=== PATIENT | female | born 1985 | race Caucasian/White ===

== ENCOUNTER → 2017-12-18 | Outpatient (CLI) | payer OTHER ==
--- NOTE | 2017-12-18 13:01 | US ---
EXAMINATION TYPE: Transabdominal DATE OF EXAM: 05/26/17 COMPARISON: NONE CLINICAL HISTORY: Z36 Confirm Dates. EXAM PERFORMED: Transabdominal (TA) EXAM MEASUREMENTS: GESTATIONAL AGE / DATING Physician Established: Not yet established Dates by LMP: (12 weeks/6 days) EDC: 06/26/2018 Dates by First Scan: No previous. This is first scan Dates by Current Scan for: (8 weeks/3 days) EDC: 07/27/2018 MATERNAL ANATOMY Uterus: 13.2 x 6.0 x 6.1cm Right Ovary: 3.0 x 3.1 x 1.8cm Left Ovary: 3.8 x 3.2 x 2.8cm Post CDS / Adnexa: wnl Presence of free fluid: no Presence of corpus luteal cyst: in left ovary = 1.7 x 1.4 x 1.3cm Presence of subchorionic bleed: no GESTATION / SURVEY CRL: 1.9cm (8 weeks/3 days) Yolk Sac (normal less than 6mm): 4.3mm Heart Rate: 174 bpm Rhythm: Normal IUP: single Date of LMP: 09/19/2017 Beta HcG (if available): NA IMPRESSION: Single, live IUP,8 weeks/3 days, EDC: 07/27/2018,HR 174bpm.
[2017-12-18 13:13] LABS: HCT 39.1 % (34.0-46.0); HGB 13.5 gm/dL (11.4-16.0); MCH 31.2 pg (25.0-35.0); MCHC 34.5 g/dL (31.0-37.0); MCV 90.3 fL (80.0-100.0); Mean Platelet Volume 6.9; Platelet Count 305 k/uL (150-450); RBC 4.33 m/uL (3.80-5.40); RDW 12.2 % (11.5-15.5); WBC 10.1 k/uL (3.8-10.6)
[2017-12-18 13:29] LABS: Glucose 88 mg/dL (74-99)
[2017-12-18 20:50] LABS: HIV 1 AB Non-Reactive (Non-Reactive); HIV AB P24 Non-Reactive (Non-Reactive); HIV P24 AG Non-Reactive (Non-Reactive)
== END | disposition home or self-care (01) ==
LOC: RADUSWWP 12:14
PROVIDERS: ATTEND Obstetrics & Gynecology
DX: Z36.89 Encounter for other specified antenatal screening (principal); Z34.81 Encounter for supervision of other normal pregnancy, first trimester; Z3A.00 Weeks of gestation of pregnancy not specified
CPT/HCPCS: 36415; 76801; 82565; 82947; 85027; 86762; 86780; 86850; 86900; 86901; 87340; 87390

== ENCOUNTER → 2018-03-02 | Outpatient (CLI) | payer OTHER ==
--- NOTE | 2018-03-02 14:50 | US ---
EXAMINATION TYPE: US OB anatomy transabd DATE OF EXAM: 03/02/2018 COMPARISON: US 2018 HISTORY: O36.62X0 Large For Dates LGA, 3, para 2 TECHNIQUE: Transabdominal (TA) EXAM MEASUREMENTS: GESTATIONAL AGE / DATING Physician Established: (19 weeks/0 days) EDC: 07/27/2018 Dates by LMP: Unknown Dates by First Scan: (19 weeks/0 days) EDC: 07/27/2018 Dates by Current Scan for: (18 weeks/6 days) EDC: 07/28/2018 SURVEY IUP: Single PLACENTA: Anterior PREVIA: with partially distended bladder placenta appears low lying, with fully distended bladder no previa seen KEE: 10.8 cm Normal CERVICAL LENGTH (transabdominal: norm > 3.0cm): 3.8 cm BIOMETRY PRESENTATION: Breech LIE: Transverse lie with head maternal right BPD: 4.2 cm 18 weeks / 5 days HC: 15.8 cm 18 weeks / 5 days AC: 14.0 cm 19 weeks / 3 days FL: 2.9 cm 19 weeks / 0 days ESTIMATED WEIGHT IN GRAMS: 277.3 grams ESTIMATED WEIGHT IN LBS/OZ: 0 lbs. 10 oz. WEIGHT PERCENTAGE BASED ON ESTABLISHED DATE: 55 % HC/AC: 1.13 Normal FL/AC: 20.99 HEART RATE: 157 bpm RHYTHM: Normal ANATOMY SEEN (within normal limits): Lateral Vent (< 1 cm) 0.7 cm Cisterna Magna (< 1.1 cm) 0.5 cm Nuchal Fold (< 0.6 cm) 0.2 cm Cerebellum (varies with age) 1.9 cm Choroid Plexus (bilateral) Midline Falx Cavus Septi Pellucidi Four Chamber Heart Outflow tracts: LVOT/RVOT Stomach Situs Nose / Lips Kidneys (bilateral) Bladder Three Vessel Cord Longitudinal Spine Transverse Spine Arms (bilateral) Legs (bilateral) ANATOMY SUBOPTIMALLY VISUALIZED (due to position): Cord Insert Diaphragm Nursing Professor notes: Viable single IUP measuring 18 weeks 6 days with a heart rate of 157bpm and an est imated delivery date of 07/28/2018. IMPRESSION: 1. SINGLE LIVE INTRAUTERINE WITH ESTIMATED GESTATIONAL AGE of 19 WEEKS 0 DAYS BY LMP. CURRE NT BIOMETRY IS CONCORDANT (18 WEEKS 6 DAYS). 2. THIS PLACES THE GESTATION AT THE 55TH PERCENTILE FOR WEIGHT. 3. A COUPLE OF THE STRUCTURES ON THE SURVEY WERE SUBOPTIMALLY VISUALIZED INCLUDING THE CORD INS ERTION AND DIAPHRAGM. THE REMAINING STRUCTURES APPEAR NORMAL. THE PATIENT CAN BE BROUGHT BACK FOR A R ESCAN IN ONE TO 2 WEEKS IF DESIRED.
== END | disposition home or self-care (01) ==
LOC: RADUSWWP 09:36
PROVIDERS: ATTEND Obstetrics & Gynecology
DX: O36.5920 Maternal care for other known or suspected poor fetal growth, second trimester, not applicable or unspecified (principal); Z3A.19 19 weeks gestation of pregnancy
CPT/HCPCS: 76811

== ENCOUNTER → 2018-03-18 | Outpatient (CLI) | payer OTHER ==
--- NOTE | 2018-03-18 16:06 | US ---
EXAMINATION TYPE: US OB Call Back DATE OF EXAM: 03/18/2018 COMPARISON: 03/12/2018 CLINICAL HISTORY: Z36 REMAINDER OF ANATOMY. GESTATIONAL AGE / DATING Dates by Initial Survey Scan: (21 weeks/2 days) EDC: 07/27/2018 HEART RATE: 157 bpm RHYTHM: Normal ANATOMY SEEN (second anatomic survey look): Diaphragm : Not discretely identified. No abdominal contents extending upwards however is evident. Cord Insert : Normal OB callback for cord insert and diaphragm Anatomy wnl IMPRESSION: Follow-up examination for anatomy. No suspicious findings on this limited portion of this exam
== END ==
LOC: RADUSWWP 10:58
PROVIDERS: ATTEND Obstetrics & Gynecology
DX: Z53.9 Procedure and treatment not carried out, unspecified reason (principal)

== ENCOUNTER → 2018-04-08 | Outpatient (CLI) | payer OTHER ==
[2018-04-08 10:45] LABS: HCT 37.9 % (34.0-46.0); HGB 12.5 gm/dL (11.4-16.0); MCH 30.7 pg (25.0-35.0); MCHC 32.9 g/dL (31.0-37.0); MCV 93.3 fL (80.0-100.0); Mean Platelet Volume 6.7; Platelet Count 276 k/uL (150-450); RBC 4.06 m/uL (3.80-5.40); RDW 13.3 % (11.5-15.5); WBC 11.4 k/uL (3.8-10.6)
== END | disposition home or self-care (01) ==
LOC: LABWHC1 09:06
PROVIDERS: ATTEND Obstetrics & Gynecology
DX: Z34.82 Encounter for supervision of other normal pregnancy, second trimester (principal)
CPT/HCPCS: 36415; 82950; 85027

== ENCOUNTER → 2018-04-13 | Outpatient (CLI) | payer OTHER ==
[2018-04-13 13:06] LABS: Glucose 3 Hour, Gest 74 mg/dL
== END ==
LOC: LABWHC1 08:07
PROVIDERS: ATTEND Obstetrics & Gynecology
DX: O99.810 Abnormal glucose complicating pregnancy (principal); Z3A.00 Weeks of gestation of pregnancy not specified
CPT/HCPCS: 36415; 82951; 82952

== ENCOUNTER 2018-04-14 20:05 | Outpatient (CLI) | payer OTHER ==
--- NOTE | 2018-04-15 09:32 | P.MSEPDOC ---
Presenting Problems - Arrival Data Date of Arrival on Unit: 04/14/18 Time of Arrival on Unit: 20:05 Mode of Transport: Wheelchair Disposition - Disposition Discharge Date: 04/14/18 Discharge Time: 22:05 I agree with the RN Medical Screening Exam: Yes Physician's MSE Comment: Pt was monitored for 4 hours after her fall. She presented a few hours after so monitoring was only for 2 hours. No contractions or bleeding. No abdominal pain on exam. heart tones had moderate variability and no decels. Risk & Benefit of care provided described in d/c instruction: Yes Diagnosis: FALL ON SAME LEVEL DUE TO ICE AND SNOW, INITIAL ENCOUNTER
== END 2018-04-14 22:05 | disposition home or self-care (01) ==
LOC: FBPOP 20:05
PROVIDERS: ATTEND Obstetrics & Gynecology
DX: O9A.219 Injury, poisoning and certain other consequences of external causes complicating pregnancy, unspecified trimester (principal); Z3A.00 Weeks of gestation of pregnancy not specified
CPT/HCPCS: 99213

== ENCOUNTER → 2018-05-12 | Outpatient (CLI) | payer OTHER ==
--- NOTE | 2018-05-12 10:30 | US ---
EXAMINATION TYPE: US OB anatomy transabd DATE OF EXAM: 05/12/2018 COMPARISON: HISTORY: O44.40 Low lying Placenta Anatomy per order TECHNIQUE: Transabdominal (TA) EXAM MEASUREMENTS: GESTATIONAL AGE / DATING Physician Established: (29 weeks/1 days) EDC: 07/27/2018 Dates by Current Scan for: (29 weeks/2 days) EDC: 07/26/2018 SURVEY IUP: Single PLACENTA: Anterior PREVIA: No previa KEE: 10.9 cm Normal CERVICAL LENGTH (transabdominal: norm > 3.0cm): 3.4 cm BIOMETRY PRESENTATION: Vertex BPD: 7.3 cm 29 weeks / 3 days HC: 27.2 cm 29 weeks / 5 days AC: 26.7 cm 30 weeks / 6 days FL: 5.5 cm 29 weeks / 1 days ESTIMATED WEIGHT IN GRAMS: 1505 grams ESTIMATED WEIGHT IN LBS/OZ: 3 lbs. 5 oz. WEIGHT PERCENTAGE BASED ON ESTABLISHED DATE: 71.5 % HC/AC: 1.0 Normal FL/AC: 20.7 Normal HEART RATE: 148 bpm RHYTHM: Normal ANATOMY SEEN (within normal limits): * Lateral Vent (< 1 cm) 0.4 cm * Cisterna Magna (< 1.1 cm) 0.6 cm * Cerebellum (varies with age) 3.3 cm Choroid Plexus (bilateral) Midline Falx Cavus Septi Pellucidi Four Chamber Heart Outflow tracts: LVOT/RVOT Stomach Situs Nose / Lips Diaphragm Kidneys (bilateral) Bladder Three Vessel Cord Legs (bilateral) ANATOMY NOT SEEN: * Nuchal Fold (< 0.6 cm) due gestational age Cord Insert Longitudinal Spine Transverse Spine Arms (bilateral) IMPRESSION: Single live IUP measuring 29 weeks 2 days. Limited anatomy scan due to late gestational age and feta l position.
== END | disposition home or self-care (01) ==
LOC: RADUSWWP 07:35
PROVIDERS: ATTEND Obstetrics & Gynecology
DX: O44.43 Low lying placenta NOS or without hemorrhage, third trimester (principal); Z3A.29 29 weeks gestation of pregnancy
CPT/HCPCS: 76811

== ENCOUNTER 2018-06-22 10:11 | Inpatient (IN) | payer OTHER ==
[2018-06-22] MEDS ORDERED: BETAMET ACET-BETAMETH SOD PHOS 6 MG/ML VIAL IM SCH (11:00)
[2018-06-22 11:25] VITALS: BMI 37.8
--- NOTE | 2018-06-22 12:39 | P.HPOB ---
History of Present Illness H&P Date: 06/22/18 Chief Complaint: Severe oligohydramnios This patient is a pleasant 32-year-old 3 para 2 female estimated date of confinement 07/27/2018 estimated gestational age 35-0/7 weeks who initially was scheduled for a 35 week growth ultrasound this morning. At the time of her ultrasound that showed adequate growth however the tech called me and reported that her KEE was significantly low the highest measurement she could get was 3.5 cm. Patient immediately presented to the office at which time I did an exam which did not show any evidence of rupture membranes. Patient's cervix is closed and heart tones category 1. I discussed various options with the patient including delivery versus close expectant management with the understanding that and severe oligohydramnios the risk of stillborn is significantly higher. After discussion with the patient and her we elected proceed with two-stage induction and delivery at this time. Patient did have a normal ultrasound done on May 12 that showed an KEE of 11. The etiology of this severe oligohydramnios at this time is unknown. Review of Systems Genitourinary: Reports Menstruation: Reports amenorrhea Past Medical History Past Medical History: No Reported History Additional Past Medical History / Comment(s): Obstetric history: Her first she had a vaginal delivery 6#11oz in 2012. This is her second and she has had care with Dr Ghotra since 7 weeks. A+, abs neg, RUb Imm, RPR NR, Hep B neg, HIV HR. Normal anatomy US. normal 1hr GTT. GBS unknown History of Any Multi-Drug Resistant Organisms: None Reported Additional Past Surgical History / Comment(s): LEEP Past Anesthesia/Blood Transfusion Reactions: No Reported Reaction Past Psychological History: No Psychological Hx Reported Smoking Status: Never smoker Past Alcohol Use History: None Reported Past Drug Use History: None Reported - Past Family History Mother Family Medical History: Hypertension Additional Family Medical History / Comment(s): cardiac arrhythmia of some sort Medications and Allergies Home Medications Medication Instructions Recorded Confirmed Type Pnv,Calcium 72/Iron/Folic Acid 1 tab PO DAILY 12/03/14 06/22/18 History [ Plus Tablet] Allergies Allergy/AdvReac Type Severity Reaction Status Date / Time amoxicillin trihydrate Allergy Swelling Verified 04/14/18 20:16 [From Augmentin] Penicillins Allergy Swelling Verified 04/14/18 20:16 potassium clavulanate Allergy Swelling Verified 04/14/18 20:16 [From Augmentin] Sulfa (Sulfonamide Allergy Swelling Verified 04/14/18 20:16 Antibiotics) Exam Vital Signs Temp Pulse Resp BP Pulse Ox 06/22/18 10:50 98.0 F 96 18 145/85 97 Intake and Output 06/21/18 06/22/18 06/22/18 22:59 06:59 14:59 Other: Weight 99.79 kg - OBG Physical Exam Abdomen: bowel sounds normal, no diffuse tenderness, no bruit present, no guarding noted, no hepatomegaly, no splenomegaly, no mass Vulva: both: normal Vagina: normal moisture, no discharge Cervix: no lesion (Cervix is closed and uneffaced), no discharge Uterus: enlarged (Fundal height is 37 cm) Results Ultrasound shows a vertex infant 5 lbs. 15 oz. with an KEE of 3.5. Assessment and Plan Assessment: This is a pleasant 32-year-old 3 para 2 female 35-0/7 weeks gestation who has severe oligohydramnios at near term. I discussed options with the patient including close expectant management with serial KEE nonstress tests versus delivery. After discussion of the patient and her elected to proceed with delivery at this time due to the increased risk of stillborn. Patient understands the this baby will be at increased risk of respiratory issue s, jaundice, and possible feeding issues. I am going to give her a dose of Celestone at this time and proceed with Cervidil later this evening. I discussed the induction process and all questions are answered. (1) 35 weeks gestation of Current Visit: Yes Status: Acute Code(s): Z3A.35 - 35 WEEKS GESTATION OF SNOMED Code(s): 46047850 (2) Oligohydramnios in heredia in third trimester Current Visit: Yes Status: Acute Code(s): O41.03X0 - OLIGOHYDRAMNIOS, THIRD TRIMESTER, NOT APPLICABLE OR UNSP SNOMED Code(s): 82243738
[2018-06-22] MEDS ORDERED: BUTORPHANOL 1 MG/ML 1 ML VIAL IV PRN (16:48)
--- NOTE | 2018-06-22 16:54 | P.PN ---
Progress Note - Text Progress Note Date: 06/22/18 heart tones are category 1. Patient is having contractions since this morning and I did check her prior to placing the Cervidil and her cervix was 2 cm and 50% effaced. Plan at this time is to continue monitoring and proceed with Pitocin induction of labor in the morning. If patient does progress in labor tonight and we will anticipate vaginal delivery at that time.
[2018-06-22] MEDS ORDERED: DINOPROSTONE 10 MG INSERT.ER VAGINAL ONE (17:00)
[2018-06-23] MEDS ORDERED: METHYLERGONOVINE 0.2 MG/ML 1 ML AMP IM PRN (05:10)
[2018-06-23] MEDS ORDERED: TERBUTALINE 1 MG/ML VIAL SQ PRN (05:10)
[2018-06-23] MEDS ORDERED: OXYTOCIN 30 UNITS/500 ML NS 30 UNIT in SALINE 1 500ML.BAG IV SCH (05:10)
[2018-06-23] MEDS ORDERED: LIDOCAINE 0.5% (PF) 5 MG/ML (50 ML SDV) SQ PRN (05:10)
[2018-06-23] MEDS ORDERED: OXYTOCIN 10 UNIT/ML 1 ML VIAL IM PRN (05:10)
[2018-06-23] MEDS ORDERED: CARBOPROST TROMETHAMINE 250 MCG/ML 1 ML AMP IM PRN (05:10)
[2018-06-23] MEDS: LACTATED RINGERS 1,000 ML IV SCH ×2 (05:46→10:45)
[2018-06-23] MEDS: CLINDAMYCIN 900 MG in DEXTROSE 5% IN WATER 50 ML IVPB SCH ×4 (05:47→13:11)
[2018-06-23 06:07] LABS: Basophils % (A) 0 %; Eosinophils # (A) 0.1 k/uL (0-0.7); Eosinophils % (A) 0 %; HCT 42.3 % (34.0-46.0); HGB 14.2 gm/dL (11.4-16.0); Lymphocytes % (A) 13 %; MCH 30.5 pg (25.0-35.0); MCHC 33.4 g/dL (31.0-37.0); MCV 91.2 fL (80.0-100.0); Mean Platelet Volume 6.6; Monocytes # (A) 0.6 k/uL (0-1.0); Monocytes % (A) 4 %; Neutrophils # (A) 12.6 k/uL (1.3-7.7); Neutrophils % (A) 81 %; Platelet Count 344 k/uL (150-450); RBC 4.64 m/uL (3.80-5.40); RDW 13.7 % (11.5-15.5); WBC 15.5 k/uL (3.8-10.6)
--- NOTE | 2018-06-23 06:12 | P.PN ---
Progress Note - Text Progress Note Date: 06/23/18 Patient is resting overnight with occasional runs of contractions. heart tones category 1. Cervix this morning is 2-3 cm 50% effaced -1 station. Artificial rupture membranes done for scant amount of clear fluid. We'll begin Pitocin per protocol in of already started IV antibiotics for unknown group B strep status. Anticipate vaginal delivery today
[2018-06-23] MEDS ORDERED: SODIUM CHLORIDE 0.9% 100 ML BAG ONE (11:42)
[2018-06-23] MEDS ORDERED: ROPIVACAINE 5MG/ML 20ML VIAL ONE (11:42)
[2018-06-23] MEDS ORDERED: fentaNYL (PF) 50 MCG/ML 5 ML AMP ONE (11:42)
[2018-06-23] MEDS ORDERED: ROPIVACAINE 100 MG, fentaNYL (PF) 200 MCG in SODIUM CHLORIDE 0.9% 76 ML EPIDURAL ONE (11:48)
[2018-06-23] MEDS ORDERED: diphenhydrAMINE 25 MG CAP PO PRN (14:09)
[2018-06-23] MEDS ORDERED: HYDROCORTISONE 2.5% RECTAL CREAM 30 GM TUBE RECTAL PRN (14:09)
[2018-06-23] MEDS ORDERED: OXYTOCIN 20 UNITS/1000 ML NS 1,000 ML IV SCH (14:09)
[2018-06-23] MEDS ORDERED: ACETAMINOPHEN TAB 325 MG TAB PO PRN (14:09)
[2018-06-23] MEDS ORDERED: SIMETHICONE 80 MG CHEWABLE PO PRN (14:09)
[2018-06-23] MEDS ORDERED: BENZOCAINE/MENTHOL SPRAY 1 GM/SPRAY AEROSOL TOPICAL PRN (14:09)
[2018-06-23] MEDS ORDERED: diphenhydrAMINE 50 MG/ML 1 ML VIAL IVP PRN (14:09)
[2018-06-23] MEDS ORDERED: LANOLIN CREAM 5 GM TUBE TOPICAL PRN (14:09)
[2018-06-23] MEDS ORDERED: BISACODYL 10 MG SUPP RECTAL PRN (14:09)
[2018-06-23] MEDS ORDERED: ZOLPIDEM 5 MG TAB PO PRN (14:09)
[2018-06-23] MEDS ORDERED: WITCH HAZEL 1 EACH MED..PAD TOPICAL PRN (14:09)
[2018-06-23] MEDS: SENNOSIDES-DOCUSATE SODIUM 1 EACH TAB PO SCH ×2 (15:36→20:40)
--- NOTE | 2018-06-23 16:52 | P.PROBDLV ---
Vaginal Delivery Note - . Vaginal Delivery Note: Normal vaginal delivery viable female Apgars 8 and 9 delivery time is 1352 hrs. Please see dictated H&P for intimate details of this patient's admission. In brief summary this is a pleasant 32-year-old 3 para 2 female 35 weeks gestation who is admitted for delivery secondary to severe oligohydramnios. Patient this morning is 2 cm dilated and has artificial rupture membranes for scant amount of clear fluid. Labor is induced with Pitocin. Patient's labor progresses normally and she does get an epidural for pain control. Patient thereafter gets to complete pushes a proximally 2 times pushes the head to the perineum. Posterior perineum was supported and we have controlled delivery of the 's head over the intact perineum. Mouth and nares are bulb suctioned. There is no evidence of a nuchal cord. With gentle downward traction we then have deliver the anterior and posterior shoulder and rest this infant's body. This is a vigorous viable female Apgars are 8 and 9 delivery time is 1352 hrs. After delivery of the infant the umbilical cord is doubly clamped and cut after it is allowed to quit pulsating. Infant is then taken to the warmer in the presence of the laborer prestressed concrete. Infant has spontaneous respirations and good cry. After delivery of the the placenta spontaneously delivered intact. Estimated blood loss is 100 mL. All counts are correct 3. There are no complications. Infant and mother stable delivery room.
[2018-06-23] MEDS: IBUPROFEN 600 MG TAB PO PRN (20:39)
[2018-06-24] MEDS: IBUPROFEN 600 MG TAB PO PRN ×4 (03:39→23:50)
--- NOTE | 2018-06-24 06:36 | P.PNOBGVD ---
Subjective - Subjective Patient reports: Reports appetite normal, Reports voiding normally, Reports pain well controlled, Reports ambulating normally : doing well Objective - Latest Vital Signs Latest vital signs: Vital Signs Temp Pulse Resp BP 06/24/18 00:00 98.6 F 86 16 129/75 06/23/18 20:00 98.1 F 80 16 119/56 06/23/18 16:05 98.6 F 90 16 121/64 06/23/18 15:35 88 16 122/66 06/23/18 15:05 80 16 109/59 06/23/18 14:50 93 16 117/64 06/23/18 14:35 90 16 119/62 06/23/18 14:18 82 16 115/52 06/23/18 14:03 97.9 F 92 16 121/58 Intake and Output 06/23/18 06/23/18 06/24/18 14:59 22:59 06:59 Intake Total 1550 Output Total 100 Balance 1450 Intake: Intake, IV Titration 1550 Amount Lactated Ringers 1,000 ml 1000 @ 125 mls/hr IV .Q8H LOUIE Rx#:[id number] Oxytocin 20 Units/1000 ml 550 Ns 1,000 ml @ Per Protocol IV .Q0M LOUIE Rx#: [id number] Output: Urine 100 Other: # Voids 1 1 2 - Exam Lungs: bilateral: normal Chest: Normal S1, Normal S2 Extremities: Present: normal Abdomen: Present: normal appearance, soft Uterus: Present: normal, firm Assessment and Plan Assessment: day #1. Patient is resting without complaints. Vital signs are stable and she is afebrile. Uterus is firm nontender and she is having normal lochia. Plan today is to continue routine care. Most likely discharge home tomorrow. (1) 35 weeks gestation of Current Visit: Yes Status: Acute Code(s): Z3A.35 - 35 WEEKS GESTATION OF SNOMED Code(s): 94832221 (2) Oligohydramnios in heredia in third trimester Current Visit: Yes Status: Acute Code(s): O41.03X0 - OLIGOHYDRAMNIOS, THIRD TRIMESTER, NOT APPLICABLE OR UNSP SNOMED Code(s): 80535196
[2018-06-24] MEDS: SENNOSIDES-DOCUSATE SODIUM 1 EACH TAB PO SCH (09:19)
[2018-06-25 01:12] VITALS: PULSE 76
[2018-06-25] MEDS: SENNOSIDES-DOCUSATE SODIUM 1 EACH TAB PO SCH ×2 (01:12→07:59)
--- NOTE | 2018-06-25 06:54 | P.PNOBGVD ---
Subjective - Subjective Patient reports: Reports appetite normal, Reports voiding normally, Reports pain well controlled, Reports ambulating normally : doing well Objective - Latest Vital Signs Latest vital signs: Vital Signs Temp Pulse Resp BP 06/25/18 00:00 98 F 76 15 119/72 06/24/18 15:34 97.7 F 88 16 135/82 06/24/18 07:58 97.9 F 82 16 133/73 Intake and Output 06/24/18 06/24/18 06/25/18 14:59 22:59 06:59 Other: # Voids 1 2 1 - Exam Lungs: bilateral: normal Chest: Normal S1, Normal S2 Extremities: Present: normal Abdomen: Present: normal appearance, soft Uterus: Present: normal, firm Assessment and Plan Assessment: Post day #2. Patient is resting without complaints. Vital signs are stable and she is afebrile. Uterus is firm nontender and she is having normal lochia. Plan today is to continue routine care discharge home later today. (1) 35 weeks gestation of Current Visit: Yes Status: Acute Code(s): Z3A.35 - 35 WEEKS GESTATION OF SNOMED Code(s): 40071961 (2) Oligohydramnios in heredia in third trimester Current Visit: Yes Status: Acute Code(s): O41.03X0 - OLIGOHYDRAMNIOS, THIRD TRIMESTER, NOT APPLICABLE OR UNSP SNOMED Code(s): 75962635
--- NOTE | 2018-06-25 07:00 | P.DS ---
Providers Date of admission: 06/22/18 10:11 Expected date of discharge: 06/25/18 Attending physician: Lambert Ghotra Primary care physician: Stated None - Discharge Diagnosis(es) (1) 35 weeks gestation of Current Visit: Yes Status: Acute (2) Oligohydramnios in heredia in third trimester Current Visit: Yes Status: Acute Hospital Course: Please see dictated H&P for intimate details of this patient's admission. In brief summary this is a pleasant 32-year-old 3 para 2 female 35 weeks gestation who is admitted to labor and delivery for induction secondary to severe oligohydramnios. Patient is admitted has uncomplicated induction of labor goes on to have a vaginal delivery viable female . Please see dictated delivery note. day #1 patient is doing well. hemorrhage 2 she continues to well was felt be stable for discharge home follow up with me in 6 weeks. Procedures: Induction of labor and normal vaginal delivery Patient Condition at Discharge: Good Plan - Discharge Summary Discharge Rx Participant: No New Discharge Prescriptions: New Ibuprofen [Motrin] 600 mg PO Q6HR PRN #40 tab PRN Reason: Mild Pain Or Fever >= 100.5 No Action Pnv,Calcium 72/Iron/Folic Acid [ Plus Tablet] 1 tab PO DAILY Discharge Medication List Pnv,Calcium 72/Iron/Folic Acid [ Plus Tablet] 1 tab PO DAILY 12/03/14 [History] Ibuprofen [Motrin] 600 mg PO Q6HR PRN #40 tab 06/25/18 [Rx] Follow up Appointment(s)/Referral(s): Lambert Ghotra MD [STAFF PHYSICIAN] - 08/11/18 10:45 am Patient Instructions/Handouts: Vaginal Delivery (DC) Activity/Diet/Wound Care/Special Instructions: No intercourse or anything per vagina for 6 weeks. Please call if any fever, chills, excessive vaginal bleeding, and/or abdominal pain. Discharge Disposition: HOME SELF-CARE
[2018-06-25] MEDS: IBUPROFEN 600 MG TAB PO PRN ×2 (07:58→15:12)
[2018-06-25 09:23] VITALS: BP 117/72; RESP 16; TEMP 98
== END 2018-06-25 17:50 | disposition home or self-care (01) | DRG 807 ==
LOC: 4FBP 10:11
PROVIDERS: ADMIT Obstetrics & Gynecology; ATTEND Obstetrics & Gynecology
PROC: 10E0XZZ Delivery of Products of Conception, External Approach (ICD-10-PCS; principal; 2018-06-23)
PROC: 10907ZC Drainage of Amniotic Fluid, Therapeutic from Products of Conception, Via Natural or Artificial Opening (ICD-10-PCS; 2018-06-23)
DX: O41.03X0 Oligohydramnios, third trimester, not applicable or unspecified (principal); Z37.0 Single live birth; Z3A.35 35 weeks gestation of pregnancy; Z88.1 Allergy status to other antibiotic agents; Z88.0 Allergy status to penicillin; Z88.2 Allergy status to sulfonamides; Z82.49 Family history of ischemic heart disease and other diseases of the circulatory system
CPT/HCPCS: 76805; 85025; 86850; 86900; 86901; 88307

== ENCOUNTER → 2018-06-22 | Outpatient (CLI) | payer OTHER ==
--- NOTE | 2018-06-22 09:49 | US ---
EXAMINATION TYPE: US OB >= 14 wk fetus DATE OF EXAM: 06/22/2018 COMPARISON: None CLINICAL HISTORY: O36.63XO Large for dates 3rd trimester TECHNIQUE: Transabdominal imaging of the gravid uterus. GESTATIONAL AGE / DATING Physician Established: (35 weeks/1 days) EDC: 07/26/18 Dates by LMP: unknown Dates by First Scan: (35 weeks/0 days) EDC: 07/27/18 Dates by Current Scan: ( 34 weeks/6 days) EDC: 07/28/18 SURVEY IUP: Single PLACENTA: Anterior PREVIA: No Previa KEE: 3.5 cm CERVICAL LENGTH (transabdominal: norm > 3.0cm): 3.1 cm BIOMETRY PRESENTATION: Vertex BPD: 8.8 cm 35weeks / 4 days HC: 30.9 cm 34 weeks / 4 days AC: 31.9 cm 35 weeks / 6 days FL: 6.9 cm 35 weeks / 1 days ESTIMATED WEIGHT IN GRAMS: 2688 grams ESTIMATED WEIGHT IN LBS/OZ: 5 lbs. 15 oz. WEIGHT PERCENTAGE BASED ON ESTABLISHED DATES: 57% HC/AC: 1.0 FL/AC: 21.5 HEART RATE: 137 bpm RHYTHM: Normal Anatomy seen: Bladder Stomach Situs Nose lips Oligohydramnios. Office called and numbers given directly to Dr. Ghotra. He directed patient to co ut to office. Patient sent. IMPRESSION: 1. Oligohydramnios. The cone baker machine called this finding directly to Dr. Ghotra. The patient was sent directly to Dr. Ghotra's office. 2. Single live intrauterine has a sonographic age of 34 weeks and 6 days and estimated date of delivery of 07/28/2018.
== END | disposition home or self-care (01) ==
LOC: RADUSWWP 08:39
PROVIDERS: ATTEND Obstetrics & Gynecology
DX: Z53.9 Procedure and treatment not carried out, unspecified reason (principal)
CPT/HCPCS: 76805

== ENCOUNTER → 2021-05-02 | Outpatient (CLI) | payer OTHER ==
--- NOTE | 2021-05-06 10:36 | MM ---
Reason for exam: screening (asymptomatic). Baseline mammogram. History: Family history of breast cancer in 2 paternal aunts. Physical Findings: A clinical breast exam by your physician is recommended on an annual basis and results should be correlated with mammographic findings. MG 3D Screening Mammo W/Cad Bilateral CC, MLO, and XCCL view(s) were taken. There are scattered fibroglandular densities. There is no discrete abnormality. Some low axillary tail and intramammary nodes bilaterally. ASSESSMENT: Benign, BI-RAD 2 RECOMMENDATION: Routine screening mammogram of both breasts in 1 year.
== END | disposition home or self-care (01) ==
LOC: RADMAMWWP 10:24
PROVIDERS: ATTEND Obstetrics & Gynecology
DX: Z12.31 Encounter for screening mammogram for malignant neoplasm of breast (principal); Z80.3 Family history of malignant neoplasm of breast
CPT/HCPCS: 77063; 77067

== ENCOUNTER → 2021-09-06 | Outpatient (CLI) | payer OTHER ==
--- NOTE | 2021-09-06 12:43 | XR ---
EXAMINATION TYPE: XR lumbar spine 2 or 3V DATE OF EXAM: 09/06/2021 CLINICAL HISTORY: Low back pain. TECHNIQUE: Frontal and lateral images of the lumbar spine are obtained. COMPARISON: None FINDINGS: There are 4 lumbar type vertebral bodies identified. The L5 vertebra is partially sacraliz ed bilaterally greater in prominence on the right where there is asymmetric abnormal articulation wit h the right S1. This sometimes can cause patient's pain. The lumbar spine shows satisfactory alignmen t without evidence of acute fracture or dislocation. Vertebral body heights and disk space heights ar e within normal limits. The overlying soft tissue appears unremarkable. IMPRESSION: As above.
== END | disposition home or self-care (01) ==
LOC: RADXRMAIN 12:11
PROVIDERS: ATTEND Family Medicine
DX: M54.50 Low back pain, unspecified (principal)
CPT/HCPCS: 72100

== ENCOUNTER → 2024-05-20 | Outpatient (CLI) | payer SELFPAY ==
--- NOTE | 2024-05-23 08:35 | MM ---
Reason for Exam: Screening (asymptomatic). Last mammogram was performed 3 year(s) and 0 month(s) ago. Patient History: Menarche at age 13. First Full-Term at age 25. Premenopausal. Patient has history of breast feeding. Paternal aunt had breast cancer. Paternal aunt had breast cancer. Paternal aunt had breast cancer at or over age 50. Paternal cousin had breast cancer under age 50. Paternal cousin had breast cancer under age 50. Mother had breast cancer, age 73. Last menstrual period: 05/06/2024 Risk Values: Maria Isabel 5 year model risk: 0.9%. NCI Lifetime model risk: 17.4%. Prior Study Comparison: 05/02/2021 Bilateral Screening Mammogram, [facility]. Tissue Density: There are scattered areas of fibroglandular density. Findings: Analyzed By CAD. There is no suspicious group of microcalcifications or new suspicious mass in either breast. Overall Assessment: Negative, BI-RAD 1 Management: Screening Mammogram of both breasts in 1 year. . Patient should continue monthly self-breast exams. A clinical breast exam by your physician is recommended on an annual basis. This exam should not preclude additional follow-up of suspicious palpable abnormalities. Note on Maria Isabel scores and lifetime risk: 1. A Maria Isabel score greater than 3% is considered moderate risk. If this is the case, consider specialist referral to assess eligibility for a risk reducing agent. 2. If overall lifetime risk for the development of breast cancer is 20% or higher, the patient may qualify for future screening with alternating mammogram and breast MRI. [facility], , 05/23/2024 8:32 AM. Electronically signed and approved by: Hna White M.D. [facility]
== END | disposition home or self-care (01) ==
LOC: RADMAMWWP 12:35
PROVIDERS: ATTEND Obstetrics & Gynecology Obstetrics
DX: Z12.31 Encounter for screening mammogram for malignant neoplasm of breast (principal); R92.323 Mammographic fibroglandular density, bilateral breasts; Z80.3 Family history of malignant neoplasm of breast
CPT/HCPCS: 77063; 77067